=== PATIENT | female | born 1990 | race Two or more races ===

== ENCOUNTER 2023-05-19 05:55 | Day surgery (SDC) | payer OTHER ==
[2023-05-13 09:15] LABS: HEMATOCRIT 40.2 % (36.0-45.00); HEMOGLOBIN 14.1 g/dL (12.0-15.00); MEAN CELL VOLUME 89.7 fL (80.00-100.00); MEAN CORPUSCULAR HEMOGLOBIN 31.4 pg (27.00-32.0); MEAN CORPUSCULAR HGB CONC 35.1 g/dl (32.0-36.0); PLATELET COUNT 383 K/uL (150-450); RED BLOOD COUNT 4.48 M/uL (4.00-6.00); RED CELL DISTRIBUTION WIDTH 12.8 % (11.5-14.5)
[2023-05-13 09:16] LABS: PH,URINE 7.5 (5.0-8.0); URINE APPEARANCE Cloudy; URINE BILIRRUBIN Negative (NEGATIVE); URINE BLOOD Negative; URINE COLOR Yellow; URINE GLUCOSE Negative (NEGATIVE); URINE LEUKOCYTE Moderate; URINE NITRATE Negative; URINE PROTEIN Negative (NEGATIVE)
[2023-05-13 09:21] LABS: URINE BACTERIA 5663.4 uL (0.0-1933); URINE EPITHELIAL CELLS 63.8 uL (0.0-38.8); URINE RBC 33.4 uL (0.0-20.8); URINE WBC 104.9 uL (0.0-23.2)
[2023-05-13 09:41] LABS: BILIRUBIN TOTAL 0.72 mg/dL (0.3-1.2); CALCIUM 9.3 mg/dL (8.5-10.1); CREATININE SERUM 0.65 mg/dL (0.55-1.02); GFR 104.97; POTASSIUM 4.25 mEq/L (3.5-5.1)
[2023-05-13 09:51] LABS: PARTIAL THROMBOPLASTIN TIME 27.1 SECONDS (22.0-34.0); PROTHROMBIN TIME 10.5 SECONDS (9.0-11.5)
== END 2023-05-19 18:45 | disposition home or self-care (01) ==
LOC: CIR.AMB 05:55
PROVIDERS: ATTEND Student in an Organized Health Care Education/Training Program
DX: N84.0 Polyp of corpus uteri (principal); N93.8 Other specified abnormal uterine and vaginal bleeding; Z20.822 Contact with and (suspected) exposure to COVID-19

== ENCOUNTER 2023-08-25 07:25 | Outpatient (CLI) | payer OTHER | END 2023-08-25 07:35 | disposition home or self-care (01) | LOC: RX STUDY 07:25 | PROVIDERS: ATTEND Student in an Organized Health Care Education/Training Program | DX: N84.0 Polyp of corpus uteri (principal); D25.9 Leiomyoma of uterus, unspecified ==

== ENCOUNTER 2024-04-01 13:33 | Outpatient (CLI) | payer OTHER | END 2024-04-01 13:35 | disposition home or self-care (01) | LOC: PRENATAL 13:33 | PROVIDERS: ATTEND Obstetrics & Gynecology Maternal & Fetal Medicine | DX: O36.80X0 Pregnancy with inconclusive fetal viability, not applicable or unspecified (principal); Z36.82 Encounter for antenatal screening for nuchal translucency; Z14.8 Genetic carrier of other disease; O34.10 Maternal care for benign tumor of corpus uteri, unspecified trimester; Z3A.12 12 weeks gestation of pregnancy ==

== ENCOUNTER 2024-05-07 18:38 | Emergency (ER) | payer OTHER ==
[~2024-05-07] VITALS: Ht 162.6 cm; Wt 72.1 kg
[2024-05-07 19:00] VITALS: BP 128/83; O2SAT 100
[2024-05-07] MEDS ORDERED: ACETAMINOPHEN 500 MG GEL..CAP PO ONE (19:30)
[2024-05-07 20:54] LABS: HEMATOCRIT 34.6 % (36.0-45.00); HEMOGLOBIN 12.1 g/dL (12.0-15.00); MEAN CELL VOLUME 89.3 fL (80.00-100.00); MEAN CORPUSCULAR HEMOGLOBIN 31.1 pg (27.00-32.0); MEAN CORPUSCULAR HGB CONC 34.9 g/dl (32.0-36.0); PLATELET COUNT 383 K/uL (150-450); RED BLOOD COUNT 3.87 M/uL (4.00-6.00); RED CELL DISTRIBUTION WIDTH 12.8 % (11.5-14.5)
== END 2024-05-07 22:20 | disposition home or self-care (01) ==
LOC: ER 18:40
PROVIDERS: General Practice
DX: S79.811A Other specified injuries of right hip, initial encounter (principal); V49.88XA Car occupant (driver) (passenger) injured in other specified transport accidents, initial encounter; Y93.89 Activity, other specified; Y92.89 Other specified places as the place of occurrence of the external cause; Y99.8 Other external cause status; Z3A.17 17 weeks gestation of pregnancy

== ENCOUNTER 2024-05-24 08:01 | Outpatient (CLI) | payer OTHER | END 2024-05-24 08:03 | disposition home or self-care (01) | LOC: PRENATAL 08:01 | PROVIDERS: ATTEND Obstetrics & Gynecology Maternal & Fetal Medicine | DX: O35.9XX0 Maternal care for (suspected) fetal abnormality and damage, unspecified, not applicable or unspecified (principal); O35.3XX0 Maternal care for (suspected) damage to fetus from viral disease in mother, not applicable or unspecified; O44.00 Complete placenta previa NOS or without hemorrhage, unspecified trimester; O44.02 Complete placenta previa NOS or without hemorrhage, second trimester; Z3A.20 20 weeks gestation of pregnancy ==

== ENCOUNTER 2024-07-19 08:59 | Outpatient (CLI) | payer OTHER | END 2024-07-19 09:04 | disposition home or self-care (01) | LOC: PRENATAL 08:59 | PROVIDERS: ATTEND Obstetrics & Gynecology Maternal & Fetal Medicine | DX: O26.849 Uterine size-date discrepancy, unspecified trimester (principal); O44.00 Complete placenta previa NOS or without hemorrhage, unspecified trimester; O34.10 Maternal care for benign tumor of corpus uteri, unspecified trimester ==

== ENCOUNTER → 2024-08-30 09:14 | Outpatient (CLI) | payer OTHER | END | disposition home or self-care (01) | LOC: PRENATAL 09:14 | PROVIDERS: ATTEND Obstetrics & Gynecology Maternal & Fetal Medicine | DX: O26.849 Uterine size-date discrepancy, unspecified trimester (principal); O36.8199 Decreased fetal movements, unspecified trimester, other fetus; O44.00 Complete placenta previa NOS or without hemorrhage, unspecified trimester; O34.10 Maternal care for benign tumor of corpus uteri, unspecified trimester; Z3A.33 33 weeks gestation of pregnancy ==

== ENCOUNTER 2024-10-04 13:00 | Inpatient (IN) | payer OTHER ==
[~2024-10-04] VITALS: Ht 162.6 cm; Wt 83.5 kg
[2024-10-04 14:43] LABS: BASO % 0.3 % (0.1-1.2); EOS # 0.04 (0.04-0.54); EOS % 0.4 % (0.7-7.0); HEMATOCRIT 37.3 % (34.1-44.9); HEMOGLOBIN 12.9 g/dL (11.2-15.7); LYMPH # 1.26 (1.18-3.74); LYMPH % 12.9 % (19.3-53.1); MEAN CORPUSCULAR HEMOGLOBIN 30.9 pg (25.6-32.2); MONO # 0.84 (0.24-0.82); MONO % 8.6 % (4.7-12.5); NEUT # 7.46 (1.56-6.13); NEUT % 76.6 % (34.0-71.1); PLATELET COUNT 293 K/uL (163-369); RED BLOOD COUNT 4.17 M/uL (3.93-5.22); RED CELL DISTRIBUTION WIDTH 13.4 % (11.6-14.4)
[2024-10-04 15:11] LABS: ALBUMIN 2.8 gm/dL (3.4-5.0); BILIRUBIN TOTAL 0.23 mg/dL (0.3-1.2); CALCIUM 9.2 mg/dL (8.5-10.1); CREATININE SERUM 0.56 mg/dL (0.55-1.02); GFR 123.92; GLOBULINA 3.4 G/DL (2.4-3.5); POTASSIUM 4.02 mEq/L (3.5-5.1); TOTAL PROTEIN 6.2 gm/dL (6.4-8.2)
[2024-10-04 15:11] LABS: URINE APPEARANCE Clear; URINE BILIRRUBIN Negative (NEGATIVE); URINE BLOOD Small; URINE COLOR Yellow; URINE GLUCOSE Negative (NEGATIVE); URINE KETONE Negative (NEGATIVE); URINE LEUKOCYTE Small; URINE NITRATE Negative; URINE PROTEIN Negative (NEGATIVE); URINE UROBILINOGEN 0.2 E.U./dl
[2024-10-04 15:12] LABS: URINE BACTERIA 1539.7 uL (0.0-1933); URINE EPITHELIAL CELLS 94.3 uL (0.0-38.8); URINE RBC 35.7 uL (0.0-20.8); URINE WBC 57.6 uL (0.0-23.2)
[2024-10-04 15:13] LABS: INR < 0.93; PARTIAL THROMBOPLASTIN TIME 24.4 SECONDS (22.0-34.0); PROTHROMBIN TIME 9.8 SECONDS (9.0-11.5)
[2024-10-11 08:39] VITALS: BP 126/75
[2024-10-11 09:18] VITALS: BP 126/75
[2024-10-11] MEDS ORDERED: PRENATABS RX T1 EACH PO (09:39)
[2024-10-11] MEDS ORDERED: MAGNESIUM500 MG PO (09:40)
[2024-10-11] MEDS ORDERED: MISOPROSTOL 25 MCG/4 ML GEL.W.APPL ONE (10:44)
[2024-10-11] MEDS ORDERED: MISOPROSTOL 25 MCG/4 ML GEL.W.APPL VAG ONE ×2 (11:15→16:45)
[2024-10-11 11:45] VITALS: BP 110/57
[2024-10-11 15:42] VITALS: BP 137/84
[2024-10-11 19:28] VITALS: BP 109/69
[2024-10-11 23:51] VITALS: BP 135/66
[2024-10-12] VITALS (8 sets, daily range): BP systolic 117–151; BP diastolic 62–90
[2024-10-12] MEDS ORDERED: OXYTOCIN 500 ML IV SCH (08:15)
[2024-10-12] MEDS ORDERED: MORPHINE SULFATE 4 MG/ML CARTRIDGE IV ONE (13:00)
[2024-10-12] MEDS ORDERED: LIDOCAINE HCL 1% 10ML VIAL ONE (16:03)
[2024-10-12] MEDS ORDERED: CHLORHEXIDINE GLUCONATE 120 ML BOTTLE TOP ONE (16:03)
[2024-10-12] MEDS ORDERED: OXYTOCIN 20 UNITS/1000ML RL PIGGYBAG IV ONE (16:03)
[2024-10-12] MEDS ORDERED: ERYTHROMYCIN BASE OPHT 1GM EACH TUBE OP ONE (16:03)
[2024-10-12] MEDS ORDERED: OXYTOCIN 1,000 ML IV SCH (17:30)
[2024-10-12] MEDS ORDERED: ACETAMINOPHEN 500 MG GEL..CAP PO PRN (17:30)
[2024-10-12 22:42] LABS: BASO % 0.2 % (0.1-1.2); HEMATOCRIT 31.2 % (34.1-44.9); HEMOGLOBIN 10.8 g/dL (11.2-15.7); LYMPH # 0.76 (1.18-3.74); LYMPH % 4.1 % (19.3-53.1); MONO # 0.96 (0.24-0.82); MONO % 5.2 % (4.7-12.5); NEUT # 16.51 (1.56-6.13); PLATELET COUNT 235 K/uL (163-369); RED BLOOD COUNT 3.48 M/uL (3.93-5.22); RED CELL DISTRIBUTION WIDTH 13.2 % (11.6-14.4)
[2024-10-13 00:43] VITALS: BP 114/80
[2024-10-13 08:01] VITALS: BP 106/65
[2024-10-13] MEDS ORDERED: PNV,CALCIUM 72/IRON/FOLIC ACID 1 TAB TABLET PO SCH (09:00)
[2024-10-13 16:00] VITALS: BP 116/76; O2SAT 98
[2024-10-14 01:37] VITALS: BP 127/85
[2024-10-14 09:24] VITALS: BP 130/80
== END 2024-10-14 14:49 | disposition home or self-care (01) | DRG 807 ==
LOC: OB/GYN 10-10 13:00 → LDR 10-11 07:32 → OB/GYN 10-12 18:17
PROVIDERS: ADMIT Student in an Organized Health Care Education/Training Program; ATTEND Student in an Organized Health Care Education/Training Program
PROC: 3E0P7VZ Introduction of Hormone into Female Reproductive, Via Natural or Artificial Opening (ICD-10-PCS; 2024-10-11)
PROC: 4A1HXCZ Monitoring of Products of Conception, Cardiac Rate, External Approach (ICD-10-PCS; 2024-10-11)
PROC: 10E0XZZ Delivery of Products of Conception, External Approach (ICD-10-PCS; principal; 2024-10-12)
PROC: 0KQM0ZZ Repair Perineum Muscle, Open Approach (ICD-10-PCS; 2024-10-12)
PROC: 3E033VJ Introduction of Other Hormone into Peripheral Vein, Percutaneous Approach (ICD-10-PCS; 2024-10-12)
DX: O70.1 Second degree perineal laceration during delivery (principal); Z37.0 Single live birth; O48.0 Post-term pregnancy; Z3A.40 40 weeks gestation of pregnancy